=== PATIENT | male | born 1970 | race Caucasian/White ===

== ENCOUNTER 2016-08-05 15:24 | Emergency (ER) | payer OTHER, BC ==
[~2016-08-05 15:24] MED LIST: POLYTRIM EYE DR10 ML RIGHT EYE
[2016-08-05] MEDS ORDERED: PENICILLIN V P500 M1 PO (16:06)
== END 2016-08-05 16:16 ==
LOC: EDMED 15:24
DX: H00.011 Hordeolum externum right upper eyelid (principal); F17.210 Nicotine dependence, cigarettes, uncomplicated